=== PATIENT | female | born 1955 | race Hispanic/Latino ===

== ENCOUNTER 2018-02-13 20:36 | Observation (INO) | payer MEDICARE, OTHER ==
[~2018-02-13] VITALS: Ht 157.5 cm; Wt 93.3 kg
[2018-02-13 21:02] LABS: BASOPHILS % (AUTO) 0.6 % (0.0-5.0); EOSINOPHILS % (AUTO) 1.4 % (0.0-8.0); HEMATOCRIT 44.8 % (36-48); LYMPHOCYTES % (AUTO) 22.3 % (21.0-51.0); MEAN CORPUSCULAR HGB CONC 34.4 g/dL (32.0-36.0); MEAN CORPUSCULAR VOLUME 81.3 fL (79-99); MONOCYTES % (AUTO) 5.1 % (3.0-13.0); NEUTROPHILS % (AUTO) 70.6 % (40.0-77.0); PLATELET COUNT (AUTO) 272 K/uL (130-400); RED BLOOD CELL COUNT(AUTO) 5.51 MIL/uL (4.00-5.50); RED CELL DISTRIBUTION WIDTH 14.9 % (11.0-15.5)
[2018-02-13 21:23] LABS: ALBUMIN 2.1 g/dL (3.5-5.0); BILIRUBIN,TOTAL 0.4 mg/dL (0.2-1.0); CREATININE 1.1 mg/dL (0.5-1.5); TOTAL PROTEIN, SERUM 5.9 g/dL (6.0-8.3)
[2018-02-13 21:30] LABS: POTASSIUM 2.6 mmol/L (3.5-5.1)
[2018-02-13 21:36] LABS: APPEARANCE,URINE Clear (CLEAR); BILIRUBIN,URINE Negative (NEGATIVE); COLOR,URINE Yellow (YELLOW); GLUCOSE, URINE (UA) >=1000 mg/dL (NEGATIVE); KETONES,URINE Negative (NEGATIVE); LEUKOCYTE ESTERASE ,URINE Negative (NEGATIVE); NITRATE,URINE Negative (NEGATIVE); OCCULT BLOOD,URINE Small (NEGATIVE); PROTEIN,URINE >=1000 (NEGATIVE); UROBILINOGEN,URINE 0.2 mg/dL (0.2-1.0)
[2018-02-13] MEDS ORDERED: POTASSIUM BICARB/CIT AC 25 MEQ TABLET.EFF ONE (21:40)
[2018-02-13 22:02] LABS: BACTERIA,URINE Rare /HPF (None Seen); SQUAMOUS EPITHELIAL CELL,UR Few /HPF (0-2)
[2018-02-13 22:03] LABS: YEAST,URINE BUDDING Rare /HPF (None Seen)
[2018-02-14] MEDS ORDERED: GABAPENTIN 100 MG CAPSULE ONE (00:38)
[2018-02-14] MEDS ORDERED: SODIUM CHLORIDE 0.9% 100 ML IV ONE (01:50)
[2018-02-14] MEDS ORDERED: LABETALOL HCL 5 MG/ML 20ML VIAL IV ONE (01:50)
[2018-02-14] MEDS ORDERED: DEXTROSE 50%-WATER 50 ML DISP.SYRIN IV PRN (09:30)
[2018-02-14] MEDS ORDERED: LACTULOSE 20 GM/30 ML UDCUP PO PRN (09:30)
[2018-02-14] MEDS ORDERED: GLUCAGON 1MG KIT 1 MG ML IM PRN (09:30)
[2018-02-14] MEDS ORDERED: SODIUM CHLORIDE 0.9% 10 ML VIAL IVP SCH (09:30)
[2018-02-14] MEDS ORDERED: NITROGLYCERIN 0.4 MG SL TAB SL PRN (09:30)
[2018-02-14] MEDS ORDERED: POTASSIUM CHLORIDE 10% ELIXIR 20 MEQ/15 ML UDCUP PO PRN (09:30)
[2018-02-14] MEDS ORDERED: ACETAMINOPHEN 325 MG TAB PO PRN ×2 (09:30)
[2018-02-14 09:58] VITALS: BP 176/69
[2018-02-14 10:42] LABS: HEMOGLOBIN A1C 12.8 % (4.0-6.0)
[2018-02-14] MEDS: ASPIRIN 325 MG TABLET PO SCH (10:44)
[2018-02-14] MEDS: INSULIN R PO SSI SQ SCH ×3 (10:46→20:41)
[2018-02-14 10:55] LABS: CREATININE 0.9 mg/dL (0.5-1.5); THYROID STIMULATING HORMONE 19.47 uIU/mL (0.36-3.74)
[2018-02-14 10:57] LABS: POTASSIUM 2.7 mmol/L (3.5-5.1)
[2018-02-14] MEDS: HYDRALAZINE HCL 20 MG/ML VIAL IV PRN ×2 (11:29→20:36)
[2018-02-14] MEDS: POTASSIUM CHLORIDE 20 MEQ ERTAB PO PRN (11:29)
[2018-02-14 16:00] VITALS: BP 152/84
[2018-02-14 19:45] VITALS: BP 174/101
[2018-02-14 21:46] VITALS: BP 150/90
[2018-02-14 23:46] VITALS: BP 145/68
[2018-02-15] VITALS (9 sets, daily range): BP systolic 141–195; BP diastolic 70–109
[2018-02-15 04:08] LABS: ALBUMIN 1.7 g/dL (3.5-5.0); BILIRUBIN,TOTAL 0.3 mg/dL (0.2-1.0); CREATININE 0.9 mg/dL (0.5-1.5); TOTAL PROTEIN, SERUM 4.6 g/dL (6.0-8.3)
[2018-02-15 04:13] LABS: POTASSIUM 2.4 mmol/L (3.5-5.1)
[2018-02-15] MEDS: POTASSIUM CHLORIDE 20MEQ/100ML 100 ML IV PRN ×2 (04:21→05:22)
[2018-02-15] MEDS: LIDOCAINE HCL-MPF 1% 2ML VIAL IJ PRN ×2 (04:22→05:22)
[2018-02-15] MEDS: INSULIN R PO SSI SQ SCH ×4 (06:34→21:00)
[2018-02-15] MEDS ORDERED: ASPI-1026 PO (09:44)
[2018-02-15] MEDS: ASPIRIN 325 MG TABLET PO SCH (10:07)
[2018-02-15] MEDS: POTASSIUM CHLORIDE 20 MEQ ERTAB PO PRN ×3 (10:11→12:09)
[2018-02-15] MEDS ORDERED: CARV3.1262 PO (14:00)
[2018-02-15] MEDS ORDERED: LATA2.5D2 OP (14:00)
[2018-02-15] MEDS ORDERED: POTASSIUM PO (14:00)
[2018-02-15] MEDS ORDERED: SPIR25TA6 PO (14:00)
[2018-02-15] MEDS ORDERED: LEVO125T95 PO (14:00)
[2018-02-15] MEDS: HYDRALAZINE HCL 20 MG/ML VIAL IV PRN ×2 (16:50→23:26)
[2018-02-15] MEDS ORDERED: METOPROLOL TARTRATE 1 MG/ML 5ML VIAL IV PRN (19:45)
[2018-02-15] MEDS: LATANOPROST 2.5 ML DROPS OP SCH (21:00)
[2018-02-16] VITALS (8 sets, daily range): BP systolic 114–151; BP diastolic 66–90
[2018-02-16] MEDS: INSULIN R PO SSI SQ SCH (06:26)
[2018-02-16] MEDS ORDERED: LEVOTHYROXINE 100 MCG TABLET PO SCH (06:30)
[2018-02-16] MEDS: LATANOPROST 2.5 ML DROPS OP SCH (08:04)
[2018-02-16] MEDS: ASPIRIN 325 MG TABLET PO SCH (08:54)
[2018-02-16] MEDS ORDERED: POTASSIUM CHLORIDE 20 MEQ ERTAB PO SCH (09:00)
[2018-02-16] MEDS ORDERED: CARVEDILOL 3.125 MG TABLET PO SCH (09:00)
[2018-02-16] MEDS ORDERED: SPIRONOLACTONE 25 MG TAB PO SCH (09:00)
== END 2018-02-16 11:24 | disposition home or self-care (01) ==
LOC: EDH 20:36 → EDHIP 02-14 07:00 → 3BH 02-14 08:43
PROVIDERS: ADMIT Internal Medicine; ATTEND Internal Medicine
DX: R41.82 Altered mental status, unspecified (principal); I11.0 Hypertensive heart disease with heart failure; I50.9 Heart failure, unspecified; E11.65 Type 2 diabetes mellitus with hyperglycemia; E03.9 Hypothyroidism, unspecified; R42 Dizziness and giddiness; Z86.73 Personal history of transient ischemic attack (TIA), and cerebral infarction without residual deficits
CPT/HCPCS: 36415 ×4; 70450; 70544; 70547; 70551; 71045; 80048; 80053 ×2; 81001; 82948 ×8; 83036; 83880; 84132 ×2; 84443; 85025; 93005; 96361; 96372 ×3; 96374; 96376 ×2; 97161; 99285; G0378 ×52; G8978; G8979; G8980; G8981; G8982; G8983; J0360 ×4; J1815 ×5; J3480 ×2; J3490 ×3